=== PATIENT | male | born 1935 | race Caucasian/White ===

== ENCOUNTER 2018-08-24 19:34 | Inpatient (IN) | payer MEDICARE, OTHER ==
[~2018-08-24] VITALS: Ht 182.9 cm; Wt 74.1 kg
[2018-08-24 20:34] LABS: BILIRUBIN,URINE NEGATIVE (NEG); CLARITY,URINE CLEAR; COLOR,URINE YELLOW; NITRITE,URINE NEGATIVE (NEG); PH,URINE 6.5; PROTEIN,URINE NEGATIVE (NEG-TRACE)
--- NOTE | 2018-08-24 20:39 | PHYS DOC ---
Past Medical History Past Medical History: Bipolar, Hypertension, Other Additional Past Medical Histor: Prostate CA,Shingles. Past Surgical History: Other Additional Past Surgical Histo: Prostate surgery for CA. Alcohol Use: None Drug Use: None Adult General Chief Complaint Chief Complaint: ALTERED MENTAL STATUS HPI HPI 83-year-old male presents to ER with his family who reports patient has had increased confusion over the past couple of days. Patient reports he has felt gradually weaker and has had intermittent dizziness. Patient denies chest pain or palpitations. Patient's family reports pt lives alone and PMH includes HTN and bipolar but they are uncertain if patient has been taking his medications. Patient denies any recent falls or injuries. Review of Systems Review of Systems Constitutional: Denies fever or chills. Reports generalized weakness Eyes: Denies change in visual acuity, redness, or eye pain [] HENT: Denies nasal congestion or sore throat [] Respiratory: Denies cough or shortness of breath [] Cardiovascular: Denies chest pain or palpitations GI: Denies abdominal pain, nausea, vomiting, bloody stools or diarrhea [] : Denies dysuria or hematuria [] Musculoskeletal: Denies back pain or joint pain [] Integument: Denies rash or skin lesions [] Neurologic: Denies headache, focal weakness or sensory changes. Per family patient has had intermittent confusion over the past 2 days All other systems were reviewed and found to be within normal limits, except as documented in this note. Allergies Allergies Allergies Coded Allergies Type Severity Reaction Last Updated Verified No Known Drug Allergies 11/22/16 No Physical Exam Physical Exam Constitutional: Well developed, well nourished, no acute distress, non-toxic appearance. Appear fatigued on initial exam. Clear speech HENT: Normocephalic, atraumatic, bilateral ears normal, mucous membranes pink/ moist, no oral exudates, nose normal. [] Eyes: 3mm bilat. PERRLA, EOMI, no nystagmus, conjunctiva normal, no discharge. [ ] Neck: Normal range of motion, no tenderness, supple, no stridor. [] Cardiovascular: Bradycardic Heart rate/rhythm, no murmur [] Lungs & Thorax: Bilateral breath sounds clear to auscultation. Resp. equal/ nonlabored Abdomen: Bowel sounds normal, soft/nondistended, no tenderness, no masses, no pulsatile masses. [] Skin: Warm, dry, no erythema, no rash. [] Back: No tenderness, no CVA tenderness. [] Extremities: No tenderness, no cyanosis, no clubbing, ROM intact, no edema. [] Neurologic: Alert and oriented X 2, normal motor function, normal sensory function, no focal deficits noted. [] Psychologic: Affect normal, judgement normal, mood normal. [] Current Patient Data Vital Signs Vital Signs Date Time Temp Pulse Resp B/P (MAP) Pulse Ox O2 Delivery O2 Flow Rate FiO2 08/24/18 20:20 98.0 48 22 174/76 (108) 97 Room Air 98.0 Lab Values Laboratory Tests Test 08/24/18 20:12 08/24/18 21:12 Urine Collection Type Unknown Urine Color Yellow Urine Clarity Clear Urine pH 6.5 Urine Specific [place] 1.015 Urine Protein Negative mg/dL (NEG-TRACE) Urine Glucose (UA) Negative mg/dL (NEG) Urine Ketones (Stick) Trace mg/dL (NEG) Urine Blood Negative (NEG) Urine Nitrite Negative (NEG) Urine Bilirubin Negative (NEG) Urine Urobilinogen Dipstick 1.0 mg/dL (0.2 mg/dL) Urine Leukocyte Esterase Trace (NEG) Urine RBC Rare /HPF (0-2) Urine WBC 1-4 /HPF (0-4) Urine Squamous Epithelial Cells Occ /LPF Urine Bacteria 0 /HPF (0-FEW) Prothrombin Time 14.7 SEC (11.7-14.0) H Prothrombin Time INR 1.2 (0.8-1.1) H PTT 29 SEC (24-38) Sodium Level 145 mmol/L (136-145) Potassium Level 3.6 mmol/L (3.5-5.1) Chloride Level 107 mmol/L (98-107) Carbon Dioxide Level 26 mmol/L (21-32) Anion Gap 12 (6-14) Blood Urea Nitrogen 20 mg/dL (8-26) Creatinine 1.1 mg/dL (0.7-1.3) Estimated GFR (Cockcroft-Gault) 63.6 BUN/Creatinine Ratio 18 (6-20) Glucose Level 135 mg/dL (70-99) H Lactic Acid Level 1.1 mmol/L (0.4-2.0) Calcium Level 8.6 mg/dL (8.5-10.1) Magnesium Level 1.9 mg/dL (1.8-2.4) Total Bilirubin 0.5 mg/dL (0.2-1.0) Aspartate Amino Transferase (AST) 22 U/L (15-37) Alanine Aminotransferase (ALT) 13 U/L (16-63) L Alkaline Phosphatase 61 U/L (46-116) Troponin I Quantitative 0.020 ng/mL (0.000-0.055) Total Protein 6.7 g/dL (6.4-8.2) Albumin 3.3 g/dL (3.4-5.0) L Albumin/Globulin Ratio 1.0 (1.0-1.7) Laboratory Tests 08/24/18 21:12 EKG EKG [] Radiology/Procedures Radiology/Procedures PROCEDURE: CT HEAD WO CONTRAST CT HEAD WO CONTRAST History: Confusion Comparison: None. Technique: Noncontrast CT imaging was performed of the head. Exposure: One or more of the following individualized dose reduction techniques were utilized for this examination: 1. Automated exposure control 2. Adjustment of the mA and/or kV according to patient size 3. Use of iterative reconstruction technique. Findings: There is some motion degradation. Allowing for motion, no convincing acute intracranial hemorrhage is identified. There is mild supratentorial involutional change. Ventricular size is proportionate to sulcal spaces. Johnson-white differentiation of the midthoracic territories is maintained. There is no significant intra-axial mass effect or midline shift. No acute calvarial abnormality is identified. Visualized paranasal sinuses and mastoid air cells are aerated. Impression: 1. No convincing acute intracranial abnormality is identified. There is mild generalized supratentorial involutional change. Electronically signed by: Cale Whitmore MD (08/24/2018 9:29 PM) [facility] DICTATED and SIGNED BY: CALE WHITMORE MD DATE: 08/24/182126 Course & Med Decision Making Course & Med Decision Making Pertinent Labs and Imaging studies reviewed. (See chart for details) On initial exam discussed admission for further monitoring/care with pt and his family with pt's c/o gen. weakness and intermittent confusion- all agreeable with plan. Pt's head CT was neg. for acute findings; EKG with no acute ST elevation/STEMI and troponin 0.020- pt remained bradycardic while in ER with HR mid 40's. With pt receiving most care thru [facility] no previous records found and family uncertain if pt had previous hx of this. Pt denied any CP or palpitations. Considered possible cause of dizziness. Pt's case and plan of care was discussed with Dr. Beatty, hospitalist with plans to admit to their services for further care. Will consult cardiology with admit orders. Pt has had no change in neuro status while in ER. A&Ox2 with confusion on place. Dragon Disclaimer Dragon Disclaimer This electronic medical record was generated, in whole or in part, using a voice recognition dictation system. Departure Departure Referrals: NO PCP (PCP) Scripts No Active Prescriptions or Reported Meds TOBIAS LE APRN Aug 24, 2018 20:38
[2018-08-24 20:41] LABS: BACTERIA,URINE 0 /HPF (0-FEW); RBC,URINE RARE /HPF (0-2); SQUAMOUS EPITHELIAL CELL,UR OCC /LPF
--- NOTE | 2018-08-24 21:33 | RAD ---
CT HEAD WO CONTRAST History: Confusion Comparison: None. Technique: Noncontrast CT imaging was performed of the head. Exposure: One or more of the following individualized dose reduction techniques were utilized for this examination: 1. Automated exposure control 2. Adjustment of the mA and/or kV according to patient size 3. Use of iterative reconstruction technique. Findings: There is some motion degradation. Allowing for motion, no convincing acute intracranial hemorrhage is identified. There is mild supratentorial involutional change. Ventricular size is proportionate to sulcal spaces. Johnson-white differentiation of the midthoracic territories is maintained. There is no significant intra-axial mass effect or midline shift. No acute calvarial abnormality is identified. Visualized paranasal sinuses and mastoid air cells are aerated. Impression: 1. No convincing acute intracranial abnormality is identified. There is mild generalized supratentorial involutional change. Electronically signed by: Deangelo Palma MD (08/24/2018 9:29 PM) [facility]
[2018-08-24 21:42] LABS: PROTHROMBIN TIME PATIENT 14.7 SEC (11.7-14.0)
[2018-08-24 21:48] LABS: CALCIUM 8.6 mg/dL (8.5-10.1); CREATININE 1.1 mg/dL (0.7-1.3); GFR 63.6; POTASSIUM 3.6 mmol/L (3.5-5.1)
[2018-08-24 21:54] LABS: ALBUMIN 3.3 g/dL (3.4-5.0); MAGNESIUM 1.9 mg/dL (1.8-2.4); TOTAL BILIRUBIN 0.5 mg/dL (0.2-1.0); TOTAL PROTEIN 6.7 g/dL (6.4-8.2)
[2018-08-24 23:00] VITALS: BP 174/76
[2018-08-24 23:06] LABS: BASO # 0.1 x10^3/uL (0.0-0.2); BASO % 1 % (0-3); EOS # 0.8 x10^3/uL (0.0-0.7); EOS % 11 % (0-3); HEMATOCRIT 39.8 % (39.0-53.0); HEMOGLOBIN 13.5 g/dL (13.0-17.5); LYMPH # 2.8 x10^3/uL (1.0-4.8); LYMPH % 42 % (24-48); MEAN CORPUSCULAR HEMOGLOBIN 29 pg (25-35); MEAN CORPUSCULAR HGB CONC 34 g/dL (31-37); MEAN CORPUSCULAR VOLUME 86 fL (79-100); MONO # 0.6 x10^3/uL (0.0-1.1); MONO % 9 % (0-9); NEUT # 2.4 x10^3uL (1.8-7.7); NEUT % 36 % (31-73); PLATELET COUNT 100 x10^3/uL (140-400); RED BLOOD COUNT 4.61 x10^6/uL (4.30-5.70); RED CELL DISTRIBUTION WIDTH 14.7 % (11.5-14.5); WHITE BLOOD COUNT 6.7 x10^3/uL (4.0-11.0)
[2018-08-24 23:37] VITALS: BP 170/73
[2018-08-25] VITALS (8 sets, daily range): BP systolic 123–172; BP diastolic 62–99
[2018-08-25 04:41] LABS: BASO # 0.1 x10^3/uL (0.0-0.2); BASO % 1 % (0-3); EOS # 0.8 x10^3/uL (0.0-0.7); EOS % 13 % (0-3); HEMOGLOBIN 13.7 g/dL (13.0-17.5); LYMPH # 2.7 x10^3/uL (1.0-4.8); LYMPH % 44 % (24-48); MEAN CORPUSCULAR HEMOGLOBIN 30 pg (25-35); MEAN CORPUSCULAR HGB CONC 34 g/dL (31-37); MEAN CORPUSCULAR VOLUME 87 fL (79-100); MONO # 0.6 x10^3/uL (0.0-1.1); MONO % 9 % (0-9); NEUT # 2.1 x10^3uL (1.8-7.7); NEUT % 33 % (31-73); PLATELET COUNT 97 x10^3/uL (140-400); RED BLOOD COUNT 4.61 x10^6/uL (4.30-5.70); RED CELL DISTRIBUTION WIDTH 14.7 % (11.5-14.5); WHITE BLOOD COUNT 6.2 x10^3/uL (4.0-11.0)
[2018-08-25 04:51] LABS: CALCIUM 8.7 mg/dL (8.5-10.1); POTASSIUM 3.5 mmol/L (3.5-5.1)
--- NOTE | 2018-08-25 09:13 | EKG ---
[facility] [address] [place] [address] Test Date: 2018-08-24 Test Time: 20:20:19 Pat Name: KADI OCHOA Department: Room: [facility] Gender: M Scalemaker: : 1935 Requested By: TOBIAS LE Order Number: [id number] Reading MD: Herminio Paulson Measurements Intervals [place] Rate: 47 P: 27 NE: 236 QRS: -52 QRSD: 130 T: 35 QT: 492 QTc: 439 Interpretive Statements SINUS BRADYCARDIA 1ST DEGRE AVB LAFB PROBABLE LVH No previous ECG available for comparison Electronically Signed On 08-27-2018 12:26:58 CDT by Herminio Paulson
--- NOTE | 2018-08-25 10:02 | CONS ---
DATE OF CONSULTATION: REASON FOR CONSULTATION: Bradycardia, change in mental status. HISTORY OF PRESENT ILLNESS: The patient is an 83-year-old man with mild dementia, who presented to the ER in the setting of worsening confusion and was brought in by family. In the ER, he was noted to have possible bradycardia with heart rates in the 40s and 50s and therefore, Cardiology was consulted for further evaluation and treatment. The patient, per report, according to family, does not have any significant cardiovascular comorbidities. Overnight after admission, he did not have any significant arrhythmias or bradycardia on telemetry. This morning, the patient denies any specific cardiac limitations such as chest pain, orthopnea, PND, lower extremity edema, palpitations, or exertional dyspnea. He denies any syncope. He has not had any other acute issues to report. PAST MEDICAL HISTORY: Notable for hypertension and bipolar disorder as well as prostate cancer and shingles. Most of his care is obtained through the [facility]. SOCIAL HISTORY: The patient is and lives alone. The patient also denies any smoking or alcohol use. ALLERGIES: No known drug allergies. FAMILY HISTORY: Noncontributory. REVIEW OF SYSTEMS: Negative for 10 out of 14 systems reviewed, unless otherwise mentioned above in HPI. PHYSICAL EXAMINATION: GENERAL: He is otherwise well developed and well nourished. He is alert and oriented to place and person, but not time. HEAD AND NECK: Otherwise unremarkable and no carotid bruits are noted. HEART: Regular rate and rhythm without any murmurs, rubs or gallops. LUNGS: Clear to auscultation bilaterally. ABDOMEN: Soft, nontender, nondistended. SKIN: Without any erythema or rash. MUSCULOSKELETAL: No trauma. He has diminished, but palpable pedal pulses. NEUROLOGIC: No focal deficits. PSYCHIATRIC: Normal mood at this time. DIAGNOSTIC TESTING: Hemoglobin 13.7, platelets 97, creatinine 1.0. Troponin is negative x 1. INR is 1.2. Head CT did not demonstrate any acute pathology. EKG demonstrates a sinus rhythm with first-degree AV block and left anterior fascicular block. IMPRESSION: 1. Mild cognitive impairment on baseline dementia, etiology unclear: Although bradycardia can certainly lead to his mental status changes, at this present time his blood pressure is stable, and it is unlikely that his bradycardia is the source of his problems. 2. History of hypertension: Medications are unclear. Awaiting list from family. 3. History of bipolar disorder. RECOMMENDATIONS: 1. We will obtain orthostatic vital signs to ensure that these are normal. 2. We will have the patient evaluated by PT and OT and ambulate him and if his heart rate appropriately rises, then he has normal chronotropic response, then no further intervention will be necessary at this hospitalization. Would advise that the patient follow up with the [facility] and consider outpatient event monitoring to rule out any significant bradycardia that may be contributing to his symptoms. Remainder of workup per primary care physician and team. Thank you for this consultation. JADE POWERS MD DR: MELQUIADES/damaris JOB#: [id number] / [id number]
--- NOTE | 2018-08-25 11:04 | PDOC1 ---
History and Physical Date of Admission Date of Admission 08/24/18 Identification/Chief Complaint Chief Complaint altered mental status Source Source: Chart review, Patient History of Present Illness History of Present Illness 83-year-old male presents to ER with his family who reports patient has had increased confusion over the past couple of days. Patient reports he has felt gradually weaker and has had intermittent dizziness. Patient denies chest pain or palpitations. Patient's family reports pt lives alone and PMH includes HTN and bipolar but they are uncertain if patient has been taking his medications. Patient denies any recent falls or injuries. admits his balance has been bad and gait unsteady requesting to go home today Past Medical History Cardiovascular: HTN CENTRAL NERVOUS SYSTEM: Other (neuropathy) GI: GERD Heme/Onc: Cancer (prostate) Psych: Bipolar Rheumatologic: Other (DJD) Infectious disease: No pertinent hx Renal/: Prostate Ca., Other Endocrine: No pertinent hx Past Surgical History Past Surgical History: Other (prostate surgery) Family History Family History: Hypertension Social History Smoke: <1 pack per day ALCOHOL: occassional Drugs: None Allergies Allergies Allergies Coded Allergies Type Severity Reaction Last Updated Verified No Known Drug Allergies 11/22/16 No ROS Review of System CONSTITUTIONAL: No fever or chills EYES: No recent changes SKIN: No rash or itching CARDIOVASCULAR: No chest pain, syncope, palpitations, or edema RESPIRATORY: No SOB or cough GASTROINTESTINAL: No nausea, vomiting or abdominal pain NEUROLOGICAL: No headaches + weakness ENDOCRINE: No cold or heat intolerance GENITOURINARY: No urgency + frequency of urination MUSCULOSKELETAL: + back pain and joint pain LYMPHATICS: No enlarged lymph nodes Physical Exam Physical Exam GEN.: No apparent distress. Alert and oriented. HEENT: Head is normocephalic, atraumatic NECK: Supple. LUNGS: decreased BS HEART: RRR, S1, S2 present. Peripheral pulses decreased ABDOMEN: Soft, nontender. Positive bowel sounds. EXTREMITIES: Without any cyanosis. NEUROLOGIC: Normal speech, normal tone PSYCHIATRIC: Normal affect, normal mood. SKIN: No ulcerations Vitals Vitals Vital Signs Date Time Temp Pulse Resp B/P (MAP) Pulse Ox O2 Delivery O2 Flow Rate FiO2 08/25/18 09:30 55 137/63 (87) 08/25/18 07:32 97.6 18 96 Room Air 97.6 Labs Labs Laboratory Tests Test 08/24/18 20:12 08/24/18 21:12 08/24/18 22:45 08/25/18 03:45 Urine Collection Type Unknown Urine Color Yellow Urine Clarity Clear Urine pH 6.5 Urine Specific [place] 1.015 Urine Protein Negative mg/dL (NEG-TRACE) Urine Glucose (UA) Negative mg/dL (NEG) Urine Ketones (Stick) Trace mg/dL (NEG) Urine Blood Negative (NEG) Urine Nitrite Negative (NEG) Urine Bilirubin Negative (NEG) Urine Urobilinogen Dipstick 1.0 mg/dL (0.2 mg/dL) Urine Leukocyte Esterase Trace (NEG) Urine RBC Rare /HPF (0-2) Urine WBC 1-4 /HPF (0-4) Urine Squamous Epithelial Cells Occ /LPF Urine Bacteria 0 /HPF (0-FEW) Prothrombin Time 14.7 SEC (11.7-14.0) Prothromb Time International Ratio 1.2 (0.8-1.1) Activated Partial Thromboplast Time 29 SEC (24-38) Sodium Level 145 mmol/L (136-145) 144 mmol/L (136-145) Potassium Level 3.6 mmol/L (3.5-5.1) 3.5 mmol/L (3.5-5.1) Chloride Level 107 mmol/L (98-107) 108 mmol/L (98-107) Carbon Dioxide Level 26 mmol/L (21-32) 27 mmol/L (21-32) Anion Gap 12 (6-14) 9 (6-14) Blood Urea Nitrogen 20 mg/dL (8-26) 19 mg/dL (8-26) Creatinine 1.1 mg/dL (0.7-1.3) 1.0 mg/dL (0.7-1.3) Estimated GFR (Cockcroft-Gault) 63.6 71.0 BUN/Creatinine Ratio 18 (6-20) Glucose Level 135 mg/dL (70-99) 82 mg/dL (70-99) Lactic Acid Level 1.1 mmol/L (0.4-2.0) Calcium Level 8.6 mg/dL (8.5-10.1) 8.7 mg/dL (8.5-10.1) Magnesium Level 1.9 mg/dL (1.8-2.4) Total Bilirubin 0.5 mg/dL (0.2-1.0) Aspartate Amino Transf (AST/SGOT) 22 U/L (15-37) Alanine Aminotransferase (ALT/SGPT) 13 U/L (16-63) Alkaline Phosphatase 61 U/L (46-116) Troponin I Quantitative 0.020 ng/mL (0.000-0.055) Total Protein 6.7 g/dL (6.4-8.2) Albumin 3.3 g/dL (3.4-5.0) Albumin/Globulin Ratio 1.0 (1.0-1.7) White Blood Count 6.7 x10^3/uL (4.0-11.0) 6.2 x10^3/uL (4.0-11.0) Red Blood Count 4.61 x10^6/uL (4.30-5.70) 4.61 x10^6/uL (4.30-5.70) Hemoglobin 13.5 g/dL (13.0-17.5) 13.7 g/dL (13.0-17.5) Hematocrit 39.8 % (39.0-53.0) 40.0 % (39.0-53.0) Mean Corpuscular Volume 86 fL (79-100) 87 fL (79-100) Mean Corpuscular Hemoglobin 29 pg (25-35) 30 pg (25-35) Mean Corpuscular Hemoglobin Concent 34 g/dL (31-37) 34 g/dL (31-37) Red Cell Distribution Width 14.7 % (11.5-14.5) 14.7 % (11.5-14.5) Platelet Count 100 x10^3/uL (140-400) 97 x10^3/uL (140-400) Neutrophils (%) (Auto) 36 % (31-73) 33 % (31-73) Lymphocytes (%) (Auto) 42 % (24-48) 44 % (24-48) Monocytes (%) (Auto) 9 % (0-9) 9 % (0-9) Eosinophils (%) (Auto) 11 % (0-3) 13 % (0-3) Basophils (%) (Auto) 1 % (0-3) 1 % (0-3) Neutrophils # (Auto) 2.4 x10^3uL (1.8-7.7) 2.1 x10^3uL (1.8-7.7) Lymphocytes # (Auto) 2.8 x10^3/uL (1.0-4.8) 2.7 x10^3/uL (1.0-4.8) Monocytes # (Auto) 0.6 x10^3/uL (0.0-1.1) 0.6 x10^3/uL (0.0-1.1) Eosinophils # (Auto) 0.8 x10^3/uL (0.0-0.7) 0.8 x10^3/uL (0.0-0.7) Basophils # (Auto) 0.1 x10^3/uL (0.0-0.2) 0.1 x10^3/uL (0.0-0.2) Test 08/25/18 09:20 Troponin I Quantitative < 0.017 ng/mL (0.000-0.055) Laboratory Tests Test 08/24/18 20:12 08/24/18 21:12 08/24/18 22:45 08/25/18 03:45 Urine Collection Type Unknown Urine Color Yellow Urine Clarity Clear Urine pH 6.5 Urine Specific [place] 1.015 Urine Protein Negative mg/dL (NEG-TRACE) Urine Glucose (UA) Negative mg/dL (NEG) Urine Ketones (Stick) Trace mg/dL (NEG) Urine Blood Negative (NEG) Urine Nitrite Negative (NEG) Urine Bilirubin Negative (NEG) Urine Urobilinogen Dipstick 1.0 mg/dL (0.2 mg/dL) Urine Leukocyte Esterase Trace (NEG) Urine RBC Rare /HPF (0-2) Urine WBC 1-4 /HPF (0-4) Urine Squamous Epithelial Cells Occ /LPF Urine Bacteria 0 /HPF (0-FEW) Prothrombin Time 14.7 SEC (11.7-14.0) Prothromb Time International Ratio 1.2 (0.8-1.1) Activated Partial Thromboplast Time 29 SEC (24-38) Sodium Level 145 mmol/L (136-145) 144 mmol/L (136-145) Potassium Level 3.6 mmol/L (3.5-5.1) 3.5 mmol/L (3.5-5.1) Chloride Level 107 mmol/L (98-107) 108 mmol/L (98-107) Carbon Dioxide Level 26 mmol/L (21-32) 27 mmol/L (21-32) Anion Gap 12 (6-14) 9 (6-14) Blood Urea Nitrogen 20 mg/dL (8-26) 19 mg/dL (8-26) Creatinine 1.1 mg/dL (0.7-1.3) 1.0 mg/dL (0.7-1.3) Estimated GFR (Cockcroft-Gault) 63.6 71.0 BUN/Creatinine Ratio 18 (6-20) Glucose Level 135 mg/dL (70-99) 82 mg/dL (70-99) Lactic Acid Level 1.1 mmol/L (0.4-2.0) Calcium Level 8.6 mg/dL (8.5-10.1) 8.7 mg/dL (8.5-10.1) Magnesium Level 1.9 mg/dL (1.8-2.4) Total Bilirubin 0.5 mg/dL (0.2-1.0) Aspartate Amino Transf (AST/SGOT) 22 U/L (15-37) Alanine Aminotransferase (ALT/SGPT) 13 U/L (16-63) Alkaline Phosphatase 61 U/L (46-116) Troponin I Quantitative 0.020 ng/mL (0.000-0.055) Total Protein 6.7 g/dL (6.4-8.2) Albumin 3.3 g/dL (3.4-5.0) Albumin/Globulin Ratio 1.0 (1.0-1.7) White Blood Count 6.7 x10^3/uL (4.0-11.0) 6.2 x10^3/uL (4.0-11.0) Red Blood Count 4.61 x10^6/uL (4.30-5.70) 4.61 x10^6/uL (4.30-5.70) Hemoglobin 13.5 g/dL (13.0-17.5) 13.7 g/dL (13.0-17.5) Hematocrit 39.8 % (39.0-53.0) 40.0 % (39.0-53.0) Mean Corpuscular Volume 86 fL (79-100) 87 fL (79-100) Mean Corpuscular Hemoglobin 29 pg (25-35) 30 pg (25-35) Mean Corpuscular Hemoglobin Concent 34 g/dL (31-37) 34 g/dL (31-37) Red Cell Distribution Width 14.7 % (11.5-14.5) 14.7 % (11.5-14.5) Platelet Count 100 x10^3/uL (140-400) 97 x10^3/uL (140-400) Neutrophils (%) (Auto) 36 % (31-73) 33 % (31-73) Lymphocytes (%) (Auto) 42 % (24-48) 44 % (24-48) Monocytes (%) (Auto) 9 % (0-9) 9 % (0-9) Eosinophils (%) (Auto) 11 % (0-3) 13 % (0-3) Basophils (%) (Auto) 1 % (0-3) 1 % (0-3) Neutrophils # (Auto) 2.4 x10^3uL (1.8-7.7) 2.1 x10^3uL (1.8-7.7) Lymphocytes # (Auto) 2.8 x10^3/uL (1.0-4.8) 2.7 x10^3/uL (1.0-4.8) Monocytes # (Auto) 0.6 x10^3/uL (0.0-1.1) 0.6 x10^3/uL (0.0-1.1) Eosinophils # (Auto) 0.8 x10^3/uL (0.0-0.7) 0.8 x10^3/uL (0.0-0.7) Basophils # (Auto) 0.1 x10^3/uL (0.0-0.2) 0.1 x10^3/uL (0.0-0.2) Test 08/25/18 09:20 Troponin I Quantitative < 0.017 ng/mL (0.000-0.055) VTE Prophylaxis Ordered VTE Prophylaxis Devices: Yes VTE Pharmacological Prophylaxi: Yes Assessment/Plan Assessment/Plan 1-altered mental status not sure acute or gradual Dementia, CT neg neurology consult and dementia W/U may need placement 2-Bradycardia check TSH and CV consult 3-thrombocytopenia 4-clinical evidence of PAD can be assessed as out pt 5-HTN by hx ok now 6-hx prostate CA s/p prostate surgery JULEE SHERIFF MD Aug 25, 2018 11:04
[2018-08-26 03:55] VITALS: BP 146/71
[2018-08-26 07:38] VITALS: BP 163/72
--- NOTE | 2018-08-26 09:02 | RAD ---
Examination: Ultrasound bilateral lower extremity arterial duplex HISTORY: History of lower extremity claudication COMPARISON: None available TECHNIQUE: Grayscale, color Doppler 2-D, spectral waveform is in the bilateral lower extremity arterial system were performed FINDINGS: The following are the velocities in the right lower extremity: Common femoral artery 73 cm/s. Deep femoral artery 83 cm/s. Proximal superficial femoral artery 86 cm/s. Mid superficial femoral artery 90 cm/s. The distal superficial femoral artery 99 cm/s. Popliteal artery 43 cm/s. Proximal WINDOW TINTER 65 cm/s. Distal WINDOW TINTER 29 cm/s. Peroneal artery 38 cm/s. Anterior tibialis artery 43 cm/s. Dorsalis pedis artery 66 cm/s. The velocities left lower extremity arterial system: Common femoral artery 45 cm/s. Deep femoral artery 50 cm/s. Proximal SFA 80 cm/s. Mid SFA 113 cm/s. Distal SFA 62 cm/s. Popliteal artery is 54 cm/s. Proximal WINDOW TINTER 153 cm/s. Distal WINDOW TINTER 41 cm/s. Peroneal artery 35 cm/s. Anterior tibialis artery 69 cm/s. Dorsalis pedis artery 61 cm/s. Biphasic waveforms identified throughout the bilateral lower extremity arterial system. IMPRESSION: 1. No evidence of hemodynamically significant stenosis identified in bilateral lower extremity arterial system. Somewhat low velocities identified in the bilateral lower extremity venous system except the left WINDOW TINTER, could be due to atherosclerotic proximal inflow disease. 2. There is mild increased velocity identified in the left proximal posterior tibialis artery likely less than 50 percent stenosis. Electronically signed by: Tucker Pickens MD (08/26/2018 8:59 AM) [facility]
[2018-08-26 11:20] VITALS: BP 137/74
--- NOTE | 2018-08-26 11:32 | PDOC ---
PROGRESS NOTES Chief Complaint Chief Complaint feels better anxious to go home, doppler LE no hemodynamic significant blockage History of Present Illness History of Present Illness home today with HH Vitals Vitals Vital Signs Date Time Temp Pulse Resp B/P (MAP) Pulse Ox O2 Delivery O2 Flow Rate FiO2 08/26/18 11:20 97.6 51 20 137/74 (95) 98 Room Air 97.6 Physical Exam General: Alert, Oriented X3, Cooperative Heart: Regular rate, Normal S1, Normal S2 Lungs: Clear Abdomen: Normal bowel sounds, Soft Extremities: No clubbing Skin: No rashes Labs LABS Laboratory Tests Test 08/25/18 20:30 Erythrocyte Sedimentation Rate 1 (0-15) Thyroid Stimulating Hormone (TSH) 0.958 uIU/mL (0.358-3.74) Comment Review of Relevant I have reviewed the following items jolene (where applicable) has been applied. Labs Laboratory Tests Test 08/24/18 20:12 08/24/18 21:12 08/24/18 22:45 08/25/18 03:45 Urine Collection Type Unknown Urine Color Yellow Urine Clarity Clear Urine pH 6.5 Urine Specific [place] 1.015 Urine Protein Negative mg/dL (NEG-TRACE) Urine Glucose (UA) Negative mg/dL (NEG) Urine Ketones (Stick) Trace mg/dL (NEG) Urine Blood Negative (NEG) Urine Nitrite Negative (NEG) Urine Bilirubin Negative (NEG) Urine Urobilinogen Dipstick 1.0 mg/dL (0.2 mg/dL) Urine Leukocyte Esterase Trace (NEG) Urine RBC Rare /HPF (0-2) Urine WBC 1-4 /HPF (0-4) Urine Squamous Epithelial Cells Occ /LPF Urine Bacteria 0 /HPF (0-FEW) Prothrombin Time 14.7 SEC (11.7-14.0) Prothromb Time International Ratio 1.2 (0.8-1.1) Activated Partial Thromboplast Time 29 SEC (24-38) Sodium Level 145 mmol/L (136-145) 144 mmol/L (136-145) Potassium Level 3.6 mmol/L (3.5-5.1) 3.5 mmol/L (3.5-5.1) Chloride Level 107 mmol/L (98-107) 108 mmol/L (98-107) Carbon Dioxide Level 26 mmol/L (21-32) 27 mmol/L (21-32) Anion Gap 12 (6-14) 9 (6-14) Blood Urea Nitrogen 20 mg/dL (8-26) 19 mg/dL (8-26) Creatinine 1.1 mg/dL (0.7-1.3) 1.0 mg/dL (0.7-1.3) Estimated GFR (Cockcroft-Gault) 63.6 71.0 BUN/Creatinine Ratio 18 (6-20) Glucose Level 135 mg/dL (70-99) 82 mg/dL (70-99) Lactic Acid Level 1.1 mmol/L (0.4-2.0) Calcium Level 8.6 mg/dL (8.5-10.1) 8.7 mg/dL (8.5-10.1) Magnesium Level 1.9 mg/dL (1.8-2.4) Total Bilirubin 0.5 mg/dL (0.2-1.0) Aspartate Amino Transf (AST/SGOT) 22 U/L (15-37) Alanine Aminotransferase (ALT/SGPT) 13 U/L (16-63) Alkaline Phosphatase 61 U/L (46-116) Troponin I Quantitative 0.020 ng/mL (0.000-0.055) Total Protein 6.7 g/dL (6.4-8.2) Albumin 3.3 g/dL (3.4-5.0) Albumin/Globulin Ratio 1.0 (1.0-1.7) White Blood Count 6.7 x10^3/uL (4.0-11.0) 6.2 x10^3/uL (4.0-11.0) Red Blood Count 4.61 x10^6/uL (4.30-5.70) 4.61 x10^6/uL (4.30-5.70) Hemoglobin 13.5 g/dL (13.0-17.5) 13.7 g/dL (13.0-17.5) Hematocrit 39.8 % (39.0-53.0) 40.0 % (39.0-53.0) Mean Corpuscular Volume 86 fL (79-100) 87 fL (79-100) Mean Corpuscular Hemoglobin 29 pg (25-35) 30 pg (25-35) Mean Corpuscular Hemoglobin Concent 34 g/dL (31-37) 34 g/dL (31-37) Red Cell Distribution Width 14.7 % (11.5-14.5) 14.7 % (11.5-14.5) Platelet Count 100 x10^3/uL (140-400) 97 x10^3/uL (140-400) Neutrophils (%) (Auto) 36 % (31-73) 33 % (31-73) Lymphocytes (%) (Auto) 42 % (24-48) 44 % (24-48) Monocytes (%) (Auto) 9 % (0-9) 9 % (0-9) Eosinophils (%) (Auto) 11 % (0-3) 13 % (0-3) Basophils (%) (Auto) 1 % (0-3) 1 % (0-3) Neutrophils # (Auto) 2.4 x10^3uL (1.8-7.7) 2.1 x10^3uL (1.8-7.7) Lymphocytes # (Auto) 2.8 x10^3/uL (1.0-4.8) 2.7 x10^3/uL (1.0-4.8) Monocytes # (Auto) 0.6 x10^3/uL (0.0-1.1) 0.6 x10^3/uL (0.0-1.1) Eosinophils # (Auto) 0.8 x10^3/uL (0.0-0.7) 0.8 x10^3/uL (0.0-0.7) Basophils # (Auto) 0.1 x10^3/uL (0.0-0.2) 0.1 x10^3/uL (0.0-0.2) Test 08/25/18 09:20 08/25/18 20:30 Troponin I Quantitative < 0.017 ng/mL (0.000-0.055) Erythrocyte Sedimentation Rate 1 (0-15) Thyroid Stimulating Hormone (TSH) 0.958 uIU/mL (0.358-3.74) Laboratory Tests Test 08/25/18 20:30 Erythrocyte Sedimentation Rate 1 (0-15) Thyroid Stimulating Hormone (TSH) 0.958 uIU/mL (0.358-3.74) Microbiology 08/24/18 Blood Culture - Preliminary, Resulted NO GROWTH AFTER 1 DAY Medications Active Scripts Active No Active Prescriptions or Reported Medications Vitals/I & O Vital Sign - Last 24 Hours 08/25/18 08/25/18 08/25/18 08/25/18 15:12 19:39 20:00 23:41 Temp 97.8 98.0 98.0 97.8 98.0 98.0 Pulse 48 47 48 Resp 18 18 18 B/P (MAP) 136/65 (88) 137/70 (92) 123/99 (107) Pulse Ox 98 98 98 O2 Delivery Room Air Room Air Room Air Room Air 08/26/18 08/26/18 08/26/18 08/26/18 03:55 07:38 08:00 11:20 Temp 98.0 97.9 97.6 98.0 97.9 97.6 Pulse 47 45 51 Resp 18 18 20 B/P (MAP) 146/71 (96) 163/72 (102) 137/74 (95) Pulse Ox 98 98 98 O2 Delivery Room Air Room Air Room Air Room Air Intake and Output 08/25/18 08/25/18 08/26/18 15:00 23:00 07:00 Intake Total 400 ml 600 ml Balance 400 ml 600 ml JULEE SHERIFF MD Aug 26, 2018 11:32
[2018-08-26] MEDS ORDERED: ASPI-612 PO (14:58)
--- NOTE | 2018-08-26 15:01 | DISCH ---
DISCHARGE WITH HOME HEALTH DISCHARGE INFORMATION: Condition on Discharge: Stable CODE STATUS: Code Status: Full HOME HEALTH: Face to Face: I certify this patient is under my care and that I, or a nurse practitioner or physician's social service assistant working with me, had a face to face encounter that meets the physician face to face encounter requirements with this patient on []. Medical Complications: Dementia, DJD, Falls Chcf For: Assess Cardiopulm Status, Assess & Educate Safety Physical Therapy For: Safety Occupational Therapy For: ADL's Pt Meets Homebound Status: Unsteady balance w/ amb, POST DISCHARGE ORDERS: Activity Instructions for Disc: No restrictions, Activity as tolerated Weight Bearing Status after Di: No restrictions, As tolerated DIET AFTER DISCHARGE: Cardiac CHECKS AFTER DISCHARGE: Checks after discharge: Check blood press - daily FOLLOW-UP: Follow up with: PCP 1-2 weeks , cardiology 6 month for bradycardia TREATMENT/EQUIPMENT ORDERS: Adaptive Equipment Issued: Walker CERTIFICATION STATEMENT: Certification Statement: Certification Statement: Based on the above finding, I certify that this patient is confined to the home and needs intermittent snf care, physical therapy and/or speech therapy, or continues to need occupational therapy.~ This patient is under my care, and I have initiated the establishment of the plan of care.~ This patient will be followed by myself or a community physician who will periodically review the plan of care. Home Meds Active Scripts Aspirin (ASPIRIN EC) 81 Mg Tablet., 81 MG PO DAILY for 30 Days, #30 TAB.SR 9 Refills Prov:JULEE SHERIFF MD 08/26/18 JULEE SHERIFF MD Aug 26, 2018 15:01
--- NOTE | 2018-08-26 15:03 | PDOC3 ---
*Discharge Summary* Date of Admission: Aug 24, 2018 Date of Discharge: Aug 26, 2018 Final Diagnosis 1-altered mental status not sure acute or gradual Dementia, CT neg , dementia W/ U may need placement 2-Bradycardia ,TSH normal , CV consult 3-thrombocytopenia 4-clinical evidence of PAD can be assessed as out pt 5-HTN by hx ok now 6-hx prostate CA s/p prostate surgery CONSULTS cardiology Procedures CT head neg arterial doppler lower ext , no severe disease Brief Hospital Course Mr. Vera is a 83 old [sex] who presented with [ ] Disposition/Orders: D/C to Home CONDITION AT DISCHARGE: Improved Diet: Cardiac Home Meds Active Scripts Aspirin (ASPIRIN EC) 81 Mg Tablet., 81 MG PO DAILY for 30 Days, #30 TAB.SR 9 Refills Prov:JULEE SHERIFF MD 08/26/18 Scheduled Aspirin (Aspirin Ec), 81 MG PO DAILY Scripts Aspirin (ASPIRIN EC) 81 Mg Tablet.dr 81 MG PO DAILY for 30 Days, #30 TAB.SR 9 Refills Prov: JULEE SHERIFF MD 08/26/18 FOLLOW UP APPOINTMENT: with PCP 1-2 weeks and with CV 6month Time Spent Total time spent with patient [] minutes for coordination of care, counseling, and education. JULEE SHERIFF MD Aug 26, 2018 15:03
[2018-08-26 15:15] VITALS: BP 141/70
[2018-08-28 13:20] LABS: ANA INTERP Positive (.)
== END 2018-08-26 18:24 | disposition home health service (06) | DRG 884 ==
LOC: ER 19:34 → 6 SOUTH 22:00
PROVIDERS: ADMIT Internal Medicine; ATTEND Internal Medicine
DX: F03.90 Unspecified dementia, unspecified severity, without behavioral disturbance, psychotic disturbance, mood disturbance, and anxiety (principal); D69.6 Thrombocytopenia, unspecified; F17.210 Nicotine dependence, cigarettes, uncomplicated; F31.9 Bipolar disorder, unspecified; I10 Essential (primary) hypertension; K21.9 Gastro-esophageal reflux disease without esophagitis; Z82.49 Family history of ischemic heart disease and other diseases of the circulatory system; Z85.46 Personal history of malignant neoplasm of prostate; G62.9 Polyneuropathy, unspecified; M19.90 Unspecified osteoarthritis, unspecified site; R00.1 Bradycardia, unspecified; I73.9 Peripheral vascular disease, unspecified; Z79.899 Other long term (current) drug therapy
CPT/HCPCS: 36415; 70450; 80048; 80053; 81001; 82607; 83605; 83735; 84443; 84484; 85025; 85610; 85651; 85730; 86038; 87040; 87086; 93005; 93923; 97110; 97530; 99285-25

== ENCOUNTER 2021-11-08 12:53 | Emergency (ER) | payer MEDICARE, OTHER ==
[~2021-11-08] VITALS: Ht 172.7 cm; Wt 61.4 kg
[~2021-11-08 12:53] MED LIST: ASPI-886 PO
[2021-11-08] MEDS ORDERED: LIDOCAINE/EPI/TETRACAINE TOPICAL GEL 3 ML. TP ONE (13:45)
--- NOTE | 2021-11-08 14:35 | RAD ---
CT HEAD AND C-SPINE WO dated 11/08/2021 2:04 PM. Comparison: None. Clinical Indication: Reason: fall / Spl. Instructions: / History: HEAD AND NECK PAIN Technical factors: Contiguous 5 mm axial images of the head were obtained from the skullbase to the v ertex. No contrast was administered. In addition, 3 mm axial images of the cervical spine were acquir ed with thin cut coronal and sagittal reconstructions. One or more of the following individualized dose reduction techniques were utilized for this examinat ion: 1. Automated exposure control 2. Adjustment of the mA and/or kV according to patient size 3. Use of iterative reconstruction technique Findings head: Ventricles and sulci are moderately prominent for age. No midline shift or mass effect. No hemorrhage or extra axial collection. There is mild patchy low density in the deep/subcortical periventricular white matter. Posterior fossa and brainstem unremarkable. Visualized paranasal sinuses and mastoid air cells are clear. No apparent calvarial abnormality. IMPRESSION HEAD: 1. No evidence of acute intracranial hemorrhage or mass. 2. Mild chronic small vessel ischemic changes and atrophy. Findings cervical spine: Images were acquired from the skull base to T2. There is straightening of the normal cervical lordosi s, otherwise sagittal alignment is anatomic. Vertebral body heights are maintained. No prevertebral s oft tissue swelling. Posterior elements are intact. No fractures are identified. Mild to moderate endplate hypertrophic changes throughout. There is moderate disc space narrowing at C3-C4 and C5-C6. Mild multilevel uncovertebral spurring and facet arthropathy. There is resultant mil d central stenosis at C5-C6 with varying degrees of mild foraminal narrowing throughout. No apparent focal disc herniation. Visualized soft tissue structures are unremarkable. Limited images of the lung apices are clear. IMPRESSION CERVICAL SPINE: 1. No evidence of fracture or malalignment. 2. Multilevel spondylosis. Electronically signed by: Darryl Cohn MD (11/08/2021 2:32 PM) [facility]
--- NOTE | 2021-11-08 14:42 | PHYS DOC ---
Past Medical History Past Medical History: Bipolar, Dementia, Hypertension, Other Additional Past Medical Histor: Prostate CA,Shingles. Past Surgical History: No Surgical History Additional Past Surgical Histo: Prostate surgery for CA. Smoking Status: Never Smoker Alcohol Use: None Drug Use: None General Adult EDM: Chief Complaint: MECHANICAL FALL HPI: HPI: Patient is a 86 year old male with history of hypertension, bipolar, some dementia, who presents to the ED today via EMS to be evaluated after falling last night. Patient lives home by himself. He is unknown what time he fell. I am getting most of my information from patient's son, son states this morning a LS9 went to patient's house, he was unable to open the door, they called the son, the son went to check on patient, patient was in bed. He had blood on his head. Patient states he fell the previous night. It is u nknown what he hit his head on but he was able to get back in bed. It is unknown if he had any loss of consciousness. Patient is only complaining of a laceration on the right scalp and right shoulder pain. Review of Systems: Review of Systems: Constitutional: Denies fever or chills. [] Eyes: Denies change in visual acuity. [] HENT: Denies nasal congestion or sore throat. [] Respiratory: Denies cough or shortness of breath. [] Cardiovascular: Denies chest pain or edema. [] GI: Denies abdominal pain, nausea, vomiting, bloody stools or diarrhea. [] : Denies dysuria. [] Musculoskeletal: Reports right shoulder pain. Denies back pain Integument: Laceration on the right scalp Neurologic: Denies headache, focal weakness or sensory changes. [] Psychiatric: Denies depression or anxiety. [] Heart Score: C/O Chest Pain: N/A Risk Factors: Risk Factors: DM, Current or recent (<one month) smoker, HTN, HLP, family history of CAD, obesity. Risk Scores: Score 0 - 3: 2.5% MACE over next 6 weeks - Discharge Home Score 4 - 6: 20.3% MACE over next 6 weeks - Admit for Clinical Observation Score 7 - 10: 72.7% MACE over next 6 weeks - Early Invasive Strategies Current Medications: Current Medications Medications (Trade) Dose Ordered Sig/Shayy Start Time Stop Time Status Last Admin Dose Admin Tetracaine/ Epinephrine/ Lidocaine (Let (Bpxy-Naeimag-Crhbw) Gel) 3 ml 1X ONCE 11/08/21 13:45 11/08/21 13:48 DC Allergies: Allergies: Allergies Coded Allergies Type Severity Reaction Last Updated Verified No Known Drug Allergies 11/22/16 No Physical Exam: PE: Constitutional: Well developed, well nourished, no acute distress, non-toxic appearance. [] HENT: Normocephalic, atraumatic, bilateral external ears normal, oropharynx moist, no oral exudates, nose normal. [] Eyes: PERRLA, EOMI, conjunctiva normal, no discharge. [] Neck: Patient is in a c-collar. Normal range of motion, no tenderness, supple, no stridor. [] Cardiovascular:Heart rate regular rhythm, no murmur [] Lungs & Thorax: Bilateral breath sounds clear to auscultation [] Abdomen: Bowel sounds normal, soft, no tenderness, no masses, no pulsatile masses. [] Skin: Right parietal scalp with alaceration roughly 2 cm long. Bleeding is well controlled Back: No tenderness, no CVA tenderness. [] Extremities: Slight tenderness on the right shoulder, no cyanosis, no clubbing, ROM intact, no edema. +2 bilateral radial pulses. Neurologic: Alert and oriented X 3, normal motor function, normal sensory function, no focal deficits noted. Cranial nerves II through XII intact Psychologic: Affect normal, judgement normal, mood normal. [] Current Patient Data: Vital Signs: Vital Signs Date Time Temp Pulse Resp B/P (MAP) Pulse Ox O2 Delivery O2 Flow Rate FiO2 11/08/21 12:55 97.5 57 18 195/98 (130) 98 Room Air 97.5 EKG: EK interpreted by Dr. Santo sinus rhythm heart rate 56 no STEMI [] Radiology/Procedures: Radiology/Procedures: []PROCEDURE: SHOULDER 2+V RIGHT XR SHOULDER_RIGHT 2+ VIEWS History: Reason: fall / Spl. Instructions: / History: . Pain Technique: 3 views right shoulder Comparison: None. Findings: Normal alignment. No dislocation. No acute fracture. Impression: 1. No acute osseous abnormality. Electronically signed by: Haroon Brandt DO (11/08/2021 3:11 PM) [id number] DICTATED and SIGNED BY: HAROON BRANDT DO DATE: 11/08/21 [id number] PROCEDURE: CT HEAD AND CERVICAL SPINE WO CT HEAD AND C-SPINE WO dated 11/08/2021 2:04 PM. Comparison: None. Clinical Indication: Reason: fall / Spl. Instructions: / History: HEAD AND NECK PAIN Technical factors: Contiguous 5 mm axial images of the head were obtained from the skullbase to the vertex. No contrast was administered. In addition, 3 mm axial images of the cervical spine were acquired with thin cut coronal and sagittal reconstructions. One or more of the following individualized dose reduction techniques were utilized for this examination: 1. Automated exposure control 2. Adjustment of the mA and/or kV according to patient size 3. Use of iterative reconstruction technique Findings head: Ventricles and sulci are moderately prominent for age. No midline shift or mass effect. No hemorrhage or extra axial collection. There is mild patchy low density in the deep/subcortical periventricular white matter. Posterior fossa and brainstem unremarkable. Visualized paranasal sinuses and mastoid air cells are clear. No apparent calvarial abnormality. IMPRESSION HEAD: 1. No evidence of acute intracranial hemorrhage or mass. 2. Mild chronic small vessel ischemic changes and atrophy. Findings cervical spine: Images were acquired from the skull base to T2. There is straightening of the normal cervical lordosis, otherwise sagittal alignment is anatomic. Vertebral body heights are maintained. No prevertebral soft tissue swelling. Posterior elements are intact. No fractures are identified. Mild to moderate endplate hypertrophic changes throughout. There is moderate disc space narrowing at C3-C4 and C5-C6. Mild multilevel uncovertebral spurring and facet arthropathy. There is resultant mild central stenosis at C5-C6 with varying degrees of mild foraminal narrowing throughout. No apparent focal disc herniation. Visualized soft tissue structures are unremarkable. Limited images of the lung apices are clear. IMPRESSION CERVICAL SPINE: 1. No evidence of fracture or malalignment. 2. Multilevel spondylosis. Electronically signed by: Darryl Cohn MD (11/08/2021 2:32 PM) [facility] DICTATED and SIGNED BY: DARRYL COHN MD DATE: 11/08/21 [id number] PROCEDURE: PORTABLE CHEST 1V XR CHEST 1V History: Reason: fall / Spl. Instructions: / History: . Pain Comparison: None. Findings: No consolidation or pleural effusion. Normal heart size. Linear density projecting over the right chest likely related to skin fold. No definite pneumothorax. Impression: 1. No acute cardiopulmonary process. Electronically signed by: Haroon Brandt DO (11/08/2021 3:09 PM) [id number] DICTATED and SIGNED BY: HAROON BRANDT DO DATE: 11/08/21 [id number] Laceration/Wound Repair Laceration/Wound Repair : [] Wound Location: Right parietal scalp Wound's Depth, Shape horizontal Wound Length (cm): Proximately 2 cm Wound Explored: clean Irrigated w/ Saline (ccs): 20 Betadine Prep?: Not applicable Anesthesia: Let solution Volume Anesthetic (ccs): 3 cc Wound Repaired With: 5 earnest Course & Med Decision Making: Course & Med Decision Making Pertinent Labs and Imaging studies reviewed. (See chart for details) This is a 86-year-old male patient presenting to the ED today from home, patient had unwitnessed fall last night. Has a laceration on the scalp which was closed with earnest also complaining of right shoulder pain. Tetanus up-to-date CT of the head and cervical spine are negative, right shoulder x-rays are negative, chest x-ray is negative. CBC, CMP, troponin are negative. UA negative for infection. BNP 3497-unknown if he has CHF. He was given furosemide in the ED. Family will take patient home. Family states they have a plan to call the PCP tomorrow, they are also planning on calling nursing homes tomorrow and try and get patient in a facility. Discharge to home in stable condition [place]u Disclaimer: uNnu Disclaimer: This electronic medical record was generated, in whole or in part, using a voice recognition dictation system. Departure Departure Impression: Primary Impression: Fall Qualified Codes: W19.XXXA - Unspecified fall, initial encounter Additional Impressions: Elevated brain natriuretic peptide (BNP) level Head injury, closed Qualified Codes: S09.90XA - Unspecified injury of head, initial encounter Scalp laceration Qualified Codes: S01.01XA - Laceration without foreign body of scalp, initial encounter Contusion of right shoulder Qualified Codes: S40.011A - Contusion of right shoulder, initial encounter Disposition: HOME / SELF CARE / HOMELESS Condition: STABLE Referrals: NO PCP (PCP) follow up with your doctor as soon as you can Patient Instructions: Contusion, Fall Prevention and Home Safety, Head Injury, Adult, [id number] Additional Instructions: You were evaluated in the emergency room, your CT of the head, ct of the cervical spine, and chest x-ray were negative for any acute findings. Your BNP was elevated at 3497 you received lasik. Please follow-up with your primary care doctor and double recheck this number again. AARON MONSALVE APRN Nov 08, 2021 14:42
[2021-11-08 14:53] LABS: BASO % 1 % (0-3); EOS # 0.2 x10^3/uL (0.0-0.7); EOS % 3 % (0-3); HEMATOCRIT 44.9 % (39.0-53.0); HEMOGLOBIN 15.1 g/dL (13.0-17.5); LYMPH # 1.7 x10^3/uL (1.0-4.8); LYMPH % 26 % (24-48); MEAN CORPUSCULAR HEMOGLOBIN 28 pg (25-35); MEAN CORPUSCULAR HGB CONC 34 g/dL (31-37); MEAN CORPUSCULAR VOLUME 85 fL (79-100); MONO # 0.4 x10^3/uL (0.0-1.1); MONO % 6 % (0-9); NEUT # 4.3 x10^3/uL (1.8-7.7); NEUT % 65 % (31-73); PLATELET COUNT 166 x10^3/uL (140-400); RED BLOOD COUNT 5.31 x10^6/uL (4.30-5.70); RED CELL DISTRIBUTION WIDTH 16.3 % (11.5-14.5); WHITE BLOOD COUNT 6.6 x10^3/uL (4.0-11.0)
[2021-11-08 15:03] LABS: PROTHROMBIN TIME PATIENT 12.5 SEC (11.7-14.0)
--- NOTE | 2021-11-08 15:12 | RAD ---
XR CHEST 1V History: Reason: fall / Spl. Instructions: / History: . Pain Comparison: None. Findings: No consolidation or pleural effusion. Normal heart size. Linear density projecting over the right chest likely related to skin fold. No definite pneumothorax. Impression: 1. No acute cardiopulmonary process. Electronically signed by: Haroon Brandt DO (11/08/2021 3:09 PM) [id number]
--- NOTE | 2021-11-08 15:13 | RAD ---
XR SHOULDER_RIGHT 2+ VIEWS History: Reason: fall / Spl. Instructions: / History: . Pain Technique: 3 views right shoulder Comparison: None. Findings: Normal alignment. No dislocation. No acute fracture. Impression: 1. No acute osseous abnormality. Electronically signed by: Haroon Brandt DO (11/08/2021 3:11 PM) [id number]
[2021-11-08 16:48] LABS: CALCIUM 8.8 mg/dL (8.5-10.1); CREATININE 0.8 mg/dL (0.7-1.3); GFR 91.2; POTASSIUM 4.1 mmol/L (3.5-5.1)
[2021-11-08 16:53] LABS: ALBUMIN 3.7 g/dL (3.4-5.0); ALBUMIN/GLOBULIN RATIO 0.9 (1.0-1.7); MAGNESIUM 2.4 mg/dL (1.8-2.4); TOTAL BILIRUBIN 1.6 mg/dL (0.2-1.0)
[2021-11-08 18:01] LABS: BILIRUBIN,URINE NEGATIVE (NEG); CLARITY,URINE CLOUDY; COLOR,URINE YELLOW; NITRITE,URINE NEGATIVE (NEG); PH,URINE 7.5 (<5.0-8.0); PROTEIN,URINE NEGATIVE (NEG-TRACE)
[2021-11-08] MEDS ORDERED: FUROSEMIDE 40 MG/4 ML VIAL. IVP ONE (18:15)
[2021-11-08 18:16] LABS: AMORPHOUS SEDIMENT,UR PRESENT /HPF; BACTERIA,URINE 0 /HPF (0-FEW); WBC,URINE 0 /HPF (0-4)
[2021-11-08 19:05] VITALS: BP 159/81
[2021-11-08 19:31] LABS: BARBITURATES NEG (NEG); BENZODIAZEPINES NEG (NEG); CANNABINOIDS NEG (NEG); COCAINE NEG (NEG); METHADONE NEG (NEG); OPIATES NEG (NEG); PHENCYCLIDINE NEG (NEG)
[2021-11-08 19:33] LABS: AMPHETAMINE/METHAMPHETAMINE NEG (NEG)
--- NOTE | 2021-11-09 03:04 | EKG ---
[facility] [address] [place] [address] Test Date: 2021-11-08 Test Time: 14:32:07 Pat Name: KADI OCHOA Department: Room: Gender: M [employer]: : 1935 Requested By: AARON MONSALVE Order Number: [id number] Reading MD: Measurements Intervals [place] Rate: 56 P: 36 TN: 244 QRS: -56 QRSD: 116 T: -40 QT: 512 QTc: 497 Interpretive Statements SINUS RHYTHM PROLONGED TN INTERVAL ABNORMAL LEFT AXIS DEVIATION R-S TRANSITION ZONE IN V LEADS DISPLACED TO THE LEFT LEFT ANTERIOR FASCICULAR BLOCK LVH WITH REPOLARIZATION ABNORMALITY PROLONGED QT ABNORMAL ECG RI6.02 No previous ECG available for comparison
== END 2021-11-08 19:05 | disposition home or self-care (01) ==
LOC: ER 12:53
DX: S01.01XA Laceration without foreign body of scalp, initial encounter (principal); S40.011A Contusion of right shoulder, initial encounter; R79.1 Abnormal coagulation profile; F31.9 Bipolar disorder, unspecified; F03.90 Unspecified dementia, unspecified severity, without behavioral disturbance, psychotic disturbance, mood disturbance, and anxiety; I10 Essential (primary) hypertension; W18.39XA Other fall on same level, initial encounter; Y93.89 Activity, other specified; Y92.89 Other specified places as the place of occurrence of the external cause; Y99.8 Other external cause status
CPT/HCPCS: 12001; 36415; 70450; 71045; 72125; 73030; 80053; 80307; 81001; 83735; 83880; 84443; 84484; 85025; 85610; 85730; 93005; 96374; 99285; J1940